=== PATIENT | female | born 1935 | race Caucasian/White ===

== ENCOUNTER 2016-10-03 00:28 | Emergency (ER) | payer MEDICARE, BC ==
[~2016-10-03] VITALS: Ht 160 cm; Wt 55.8 kg
[~2016-10-03 00:28] MED LIST: AMIO200T2 PO; AMLO5TAB2 PO; ATOR20TA58 PO; LEVO75TA5 PO; SENN-6 PO
[2016-10-03 01:17] LABS: BASO # 0.1 x10^3/uL (0.0-0.2); BASO % 1 % (0-3); EOS % 0 % (0-3); HEMATOCRIT 38.3 % (36.0-47.0); HEMOGLOBIN 13.2 g/dL (12.0-15.5); LYMPH # 2.5 x10^3/uL (1.0-4.8); LYMPH % 19 % (24-48); MEAN CORPUSCULAR HEMOGLOBIN 32 pg (25-35); MEAN CORPUSCULAR HGB CONC 35 g/dL (31-37); MEAN CORPUSCULAR VOLUME 93 fL (79-100); MONO % 6 % (0-9); NEUT % 75 % (31-73); PLATELET COUNT 229 x10^3/uL (140-400); RED CELL DISTRIBUTION WIDTH 13.7 % (11.5-14.5); WHITE BLOOD COUNT 13.1 x10^3/uL (4.0-11.0)
[2016-10-03] MEDS ORDERED: IV NORMAL SALINE 500ML BAG 500 ML IV ONE (01:30)
[2016-10-03] MEDS ORDERED: ONDANSETRON PF 4 MG/2 ML VIAL. IV ONE (01:30)
[2016-10-03 02:06] LABS: CALCIUM 9.1 mg/dL (8.5-10.1); CREATININE 1.9 mg/dL (0.6-1.0); GFR 25.3; POTASSIUM 3.5 mmol/L (3.5-5.1)
[2016-10-03 02:11] LABS: ALBUMIN 3.4 g/dL (3.4-5.0); ALBUMIN/GLOBULIN RATIO 1.1 (1.0-1.7); TOTAL BILIRUBIN 1.2 mg/dL (0.2-1.0); TOTAL PROTEIN 6.6 g/dL (6.4-8.2)
[2016-10-03 02:31] LABS: BILIRUBIN,URINE NEGATIVE (NEG); GLUCOSE,URINE NEGATIVE (NEG); NITRITE,URINE NEGATIVE (NEG); PH,URINE 7.5; PROTEIN,URINE NEGATIVE (NEG-TRACE)
[2016-10-03 02:45] VITALS: BP 123/75
[2016-10-03 02:51] LABS: BACTERIA,URINE MODERATE /HPF (0-FEW); RBC,URINE 0 /HPF (0-2); SQUAMOUS EPITHELIAL CELL,UR MOD /LPF
[2016-10-03] MEDS ORDERED: ONDA4TAB10 SL (03:12)
[2016-10-03] MEDS ORDERED: SULF1TAB23 PO (03:12)
--- NOTE | 2016-10-03 03:12 | PHYS DOC ---
Past Medical History Past Medical History: Heart Disease, Hypertension Past Surgical History: Appendectomy, Cholecystectomy, Coronary Bypass Surgery Alcohol Use: None Drug Use: None Adult General Chief Complaint Chief Complaint: NAUSEA/VOMITING/DIARRHA HPI HPI Patient is a 81 year old female who presents with nausea. The patient reports onset of nausea about 1 hour prior to arrival, associated with "dry heaves" & 1 episode of vomiting upon arrival here. She denies fevers/chills, hematemesis, abdominal pain, diarrhea, constipation, hematochezia/melena, dysuria/hematuria. She denies recent travel or antibiotics. She has no known exposures to sick contacts. She has history of appendectomy, cholecystectomy, CABG. Review of Systems Review of Systems Constitutional: Denies fever or chills HENT: Denies nasal congestion or sore throat Respiratory: Denies cough or shortness of breath Cardiovascular: Denies chest pain or edema GI: Reports abdominal pain, nausea, vomiting, denies bloody stools or diarrhea : Denies dysuria or hematuria Musculoskeletal: Denies back pain or joint pain Integument: Denies rash or skin lesions Neurologic: Denies headache, focal weakness or sensory changes Current Medications Current Medications Current Medications Medications (Trade) Dose Ordered Sig/Nelli Start Time Stop Time Status Last Admin Dose Admin Ondansetron HCl (Zofran) 4 mg 1X ONCE 10/03/16 01:30 10/03/16 01:31 DC 10/03/16 01:23 4 MG Sodium Chloride 500 ml @ 500 mls/hr 1X ONCE 10/03/16 01:30 10/03/16 02:29 DC 10/03/16 01:23 500 MLS/HR Allergies Allergies Allergies Coded Allergies Type Severity Reaction Last Updated Verified No Known Drug Allergies 05/25/13 No Physical Exam Physical Exam Constitutional: Well developed, well nourished, no acute distress, non-toxic appearance. HENT: Normocephalic, atraumatic, bilateral external ears normal, oropharynx moist, nose normal. Eyes:conjunctiva normal, no discharge. Neck: supple, no stridor. Cardiovascular: RRR, no murmurs, no edema. Lungs & Thorax: LCTAB, no wheezing, no respiratory distress. Abdomen: normal bowel sounds, soft, nontender, no rebound/guarding, no masses or pulsatile masses, nondistended. Skin: Warm, dry, no erythema, no rash. Back: No CVA tenderness. Extremities: No tenderness, no edema. Neurologic: Alert and oriented X 3, no focal deficits noted. Psychologic: Affect normal, judgement normal, mood normal. Current Patient Data Vital Signs Vital Signs Date Time Temp Pulse Resp B/P (MAP) Pulse Ox O2 Delivery O2 Flow Rate FiO2 10/03/16 03:00 54 54 96 Room Air 10/03/16 02:45 123/75 (91) 10/03/16 00:46 98.1 98.1 Lab Values Laboratory Tests Test 10/03/16 00:58 10/03/16 01:40 10/03/16 02:13 White Blood Count 13.1 x10^3/uL (4.0-11.0) H Red Blood Count 4.10 x10^6/uL (3.50-5.40) Hemoglobin 13.2 g/dL (12.0-15.5) Hematocrit 38.3 % (36.0-47.0) Mean Corpuscular Volume 93 fL (79-100) Mean Corpuscular Hemoglobin 32 pg (25-35) Mean Corpuscular Hemoglobin Concent 35 g/dL (31-37) Red Cell Distribution Width 13.7 % (11.5-14.5) Platelet Count 229 x10^3/uL (140-400) Neutrophils (%) (Auto) 75 % (31-73) H Lymphocytes (%) (Auto) 19 % (24-48) L Monocytes (%) (Auto) 6 % (0-9) Eosinophils (%) (Auto) 0 % (0-3) Basophils (%) (Auto) 1 % (0-3) Neutrophils # (Auto) 9.7 x10^3uL (1.8-7.7) H Lymphocytes # (Auto) 2.5 x10^3/uL (1.0-4.8) Monocytes # (Auto) 0.7 x10^3/uL (0.0-1.1) Eosinophils # (Auto) 0.1 x10^3/uL (0.0-0.7) Basophils # (Auto) 0.1 x10^3/uL (0.0-0.2) Sodium Level 142 mmol/L (136-145) Potassium Level 3.5 mmol/L (3.5-5.1) Chloride Level 106 mmol/L (98-107) Carbon Dioxide Level 28 mmol/L (21-32) Anion Gap 8 (6-14) Blood Urea Nitrogen 32 mg/dL (7-20) H Creatinine 1.9 mg/dL (0.6-1.0) H Estimated GFR (Cockcroft-Gault) 25.3 BUN/Creatinine Ratio 17 (6-20) Glucose Level 101 mg/dL (70-99) H Calcium Level 9.1 mg/dL (8.5-10.1) Total Bilirubin 1.2 mg/dL (0.2-1.0) H Aspartate Amino Transferase (AST) 21 U/L (15-37) Alanine Aminotransferase (ALT) 18 U/L (14-59) Alkaline Phosphatase 38 U/L (46-116) L Troponin I Quantitative < 0.017 ng/mL (0.000-0.055) Total Protein 6.6 g/dL (6.4-8.2) Albumin 3.4 g/dL (3.4-5.0) Albumin/Globulin Ratio 1.1 (1.0-1.7) Lipase 205 U/L (73-393) Urine Collection Type Unknown Urine Color Yellow Urine Clarity Cloudy Urine pH 7.5 Urine Specific [place] 1.020 Urine Protein Negative mg/dL (NEG-TRACE) Urine Glucose (UA) Negative mg/dL (NEG) Urine Ketones (Stick) Negative mg/dL (NEG) Urine Blood Negative (NEG) Urine Nitrite Negative (NEG) Urine Bilirubin Negative (NEG) Urine Urobilinogen Dipstick 1.0 mg/dL (0.2 mg/dL) Urine Leukocyte Esterase Moderate (NEG) Urine RBC 0 /HPF (0-2) Urine WBC 11-20 /HPF (0-4) Urine Squamous Epithelial Cells Mod /LPF Urine Amorphous Sediment Present /HPF Urine Bacteria Moderate /HPF (0-FEW) Laboratory Tests 10/03/16 00:58 Laboratory Tests 10/03/16 01:40 EKG EKG interpreted by me: NSR rate 53, no acute ST/T wave changes, QTc prolonged 474 ms, no ectopy.[] Radiology/Procedures Radiology/Procedures [] Course & Med Decision Making Course & Med Decision Making Pertinent Labs and Imaging studies reviewed. (See chart for details) Patient is well appearing with stable vitals, here after 1 episode of vomiting. She has no abdominal tenderness or peritoneal signs on exam. Gave zofran & IV fluids, labs as above. She has UTI & Cr is 1.9 but no other recent labs for comparison. She felt well & requested discharge home. Gave prescription for bactrim, encourage PO hydration. Follow up with PCP in 2-3 days. Come back for high fever, severe abdominal pain or flank pain, uncontrolled vomiting, any otherwise worsening condition. Discharged home in stable & improved condition. [] Dragon Disclaimer Dragon Disclaimer This electronic medical record was generated, in whole or in part, using a voice recognition dictation system. Departure Departure Impression: Primary Impression: Nausea & vomiting Additional Impression: Urinary tract infection Disposition: 01 HOME, SELF-CARE Condition: STABLE Referrals: NO PCP (PCP) Patient Instructions: Nausea and Vomiting, [id number], Urinary Tract Infection, [id number] Additional Instructions: You seen in the emergency department today for vomiting. Tests showed urinary tract infection and mild kidney impairment. Please the prescribed antibiotic, drink fluids to stay hydrated. Use Zofran as needed for nausea. Follow-up with primary care physician in 2-3 days. Return to the emergency department for high fever, severe abdominal pain or flank pain, uncontrolled vomiting, any otherwise worsening condition. Scripts Ondansetron (ZOFRAN ODT) 4 Mg Tab.rapdis 1 TAB SL Q8HRS Y for NAUSEA, #10 TAB Prov: ALEX JONES MD 10/03/16 Sulfamethoxazole/Trimethoprim (BACTRIM 400-80 MG TABLET) 1 Each Tablet 1 TAB PO BID, #10 TAB Prov: ALEX JONES MD 10/03/16 Problem Qualifiers ALEX JONES MD October 03, 2016 03:12
--- NOTE | 2016-10-03 06:27 | EKG ---
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
== END 2016-10-03 03:21 | disposition home or self-care (01) ==
LOC: ER 00:28
DX: N39.0 Urinary tract infection, site not specified (principal); R11.2 Nausea with vomiting, unspecified; I11.9 Hypertensive heart disease without heart failure; Z90.49 Acquired absence of other specified parts of digestive tract; Z95.1 Presence of aortocoronary bypass graft
CPT/HCPCS: 36415; 80053; 81001; 83690; 84484; 85027; 87086; 93005; 96361; 96374; 99285; J2405; J7040

== ENCOUNTER 2016-10-30 22:21 | Emergency (ER) | payer MEDICARE, BC ==
[~2016-10-30 22:21] MED LIST changes: +ONDA4TAB10 SL; +SULF1TAB23 PO
== END 2016-10-30 22:56 | disposition left against medical advice (07) ==
LOC: ER 22:21
DX: R10.9 Unspecified abdominal pain (principal); R51 Headache; Z53.21 Procedure and treatment not carried out due to patient leaving prior to being seen by health care provider

== ENCOUNTER 2016-12-20 19:10 | Emergency (ER) | payer MEDICARE, BC ==
[~2016-12-20] VITALS: Ht 160 cm; Wt 55.8 kg
[2016-12-20] MEDS ORDERED: MORPHINE SULFATE 2 MG/ML DISP.SYRIN. IV/SQ PRN (19:45)
[2016-12-20] MEDS ORDERED: ONDANSETRON PF 4 MG/2 ML VIAL. IV ONE (19:45)
[2016-12-20 20:13] LABS: BILIRUBIN,URINE SMALL (NEG); GLUCOSE,URINE NEGATIVE (NEG); NITRITE,URINE NEGATIVE (NEG); PROTEIN,URINE NEGATIVE (NEG-TRACE)
[2016-12-20 20:23] LABS: BACTERIA,URINE MANY /HPF (0-FEW); RBC,URINE 0 /HPF (0-2); SQUAMOUS EPITHELIAL CELL,UR MOD /LPF
[2016-12-20 20:37] LABS: BASO % 1 % (0-3); EOS % 1 % (0-3); HEMATOCRIT 37.5 % (36.0-47.0); HEMOGLOBIN 12.5 g/dL (12.0-15.5); LYMPH # 1.1 x10^3/uL (1.0-4.8); LYMPH % 18 % (24-48); MEAN CORPUSCULAR HEMOGLOBIN 32 pg (25-35); MEAN CORPUSCULAR HGB CONC 33 g/dL (31-37); MEAN CORPUSCULAR VOLUME 95 fL (79-100); MONO % 8 % (0-9); NEUT % 73 % (31-73); PLATELET COUNT 201 x10^3/uL (140-400); RED BLOOD COUNT 3.93 x10^6/uL (3.50-5.40)
[2016-12-20 20:54] LABS: CALCIUM 9.2 mg/dL (8.5-10.1); CREATININE 1.9 mg/dL (0.6-1.0); GFR 25.3
[2016-12-20 20:58] LABS: ALBUMIN 4.2 g/dL (3.4-5.0); ALBUMIN/GLOBULIN RATIO 1.2 (1.0-1.7); TOTAL BILIRUBIN 1.3 mg/dL (0.2-1.0); TOTAL PROTEIN 7.7 g/dL (6.4-8.2)
--- NOTE | 2016-12-20 21:39 | RAD ---
CT Abdomen and Pelvis without contrast History: Lower abdominal pain for one month Technique: Noncontrast CT imaging was performed of the abdomen and pelvis. Multiplanar images are reviewed. Exposure: One or more of the following individualized dose reduction techniques were utilized for this examination: 1. Automated exposure control 2. Adjustment of the mA and/or kV according to patient size 3. Use of iterative reconstruction technique. Comparison: May 09, 2008 Findings: There is mild linear atelectasis lung bases.Accurate evaluation of abdominal visceral organs is limited without intravenous contrast. There is no obvious abnormality of the spleen, liver, or pancreas. There is no adrenal nodularity. Gallbladder is again not visualized. There is no hydronephrosis of either kidney. There are apparently some punctate left renal calculi. There is a larger hypodense lesion of the superior right kidney up to 3.1 cm, density measurements suggestive of a cyst at 12 Hounsfield units. There is diffuse atherosclerotic calcification of the abdominal aorta, extent to the iliac arteries bilaterally, also near the renal artery origins. There is likely mild narrowing of the origin of the superior mesenteric artery by calcified plaque. Accurate evaluation of bowel is limited without oral contrast. There is fairly prominent distention of the stomach. There is retained stool variably throughout the colon greatest of the ascending through descending colon. There reportedly has been appendectomy. There is no significant free air, free fluid, bowel dilatation. There is multilevel lumbar facet degenerative change. There is spondylosis greatest L3-4 and L2-3. There is at least mild spinal stenosis at L4-5 and L3-4. There is at least mild neural foramina compromise bilaterally at L2-3. There is again fat in the left inguinal canal, no bowel. Impression: 1. There is variable retained stool in the colon greatest of ascending through descending colon. 2. There is right renal cyst larger than previous exam. 3. There is fairly prominent distention of the stomach. 4. There is again fat in the left inguinal canal, no bowel. Electronically signed by: Sal Burger MD (12/20/2016 9:36 PM) [facility]
--- NOTE | 2016-12-20 22:50 | PHYS DOC ---
Past Medical History Past Medical History: Heart Disease, Hypertension Past Surgical History: Appendectomy, Cholecystectomy, Coronary Bypass Surgery Alcohol Use: None Drug Use: None Adult General Chief Complaint Chief Complaint: VAGINAL PROBLEM HPI HPI Patient is a 81 year old female who presents with abdominal pain. The patient reports three-day history of intermittent frequent lower abdominal spasms like contractions. She states these episodes are very painful and brief. She also reports increased bilateral lower extremity edema. She denies fevers or chills, nausea or vomiting, diarrhea or constipation, dysuria or hematuria, vaginal bleeding or discharge. She has history of previous UTI. History of appendectomy , cholecystectomy, CABG. Review of Systems Review of Systems Constitutional: Denies fever or chills Eyes: Denies change in visual acuity HENT: Denies nasal congestion or sore throat Respiratory: Denies cough or shortness of breath Cardiovascular: Denies chest pain or edema GI: Reports abdominal pain, denies nausea, vomiting, bloody stools or diarrhea : Denies dysuria or hematuria Musculoskeletal: Denies back pain or joint pain Integument: Denies rash or skin lesions Neurologic: Denies headache, focal weakness or sensory changes Current Medications Current Medications Current Medications Medications (Trade) Dose Ordered Sig/Nelli Start Time Stop Time Status Last Admin Dose Admin Morphine Sulfate 2 mg PRN Q15MIN PRN 12/20/16 19:45 12/21/16 01:43 DC 12/20/16 20:39 2 MG Ondansetron HCl (Zofran) 4 mg 1X ONCE 12/20/16 19:45 12/20/16 19:46 DC 12/20/16 20:38 4 MG Allergies Allergies Allergies Coded Allergies Type Severity Reaction Last Updated Verified No Known Drug Allergies 05/25/13 No Physical Exam Physical Exam Constitutional: Well developed, well nourished, no acute distress, non-toxic appearance. HENT: Normocephalic, atraumatic, bilateral external ears normal, oropharynx moist, nose normal. Eyes: PERRLA, EOMI, conjunctiva normal, no discharge. Neck: supple, no stridor. Cardiovascular: RRR, no murmurs Lungs & Thorax: LCTAB, no wheezing, no respiratory distress. Abdomen: soft, nontender, nondistended. No masses or pulsatile masses, no rebound or guarding. Intermittent spasms of the overlying abdominal musculature Skin: Warm, dry, no erythema, no rash. Back: No CVA tenderness. Extremities: No tenderness, 2+ nonpitting edema to bilateral lower extremities without calf tenderness Neurologic: Alert and oriented X 3, no focal deficits noted. Psychologic: Affect normal, judgement normal, mood normal. Current Patient Data Vital Signs Vital Signs Date Time Temp Pulse Resp B/P (MAP) Pulse Ox O2 Delivery O2 Flow Rate FiO2 12/20/16 23:30 55 16 118/67 (84) 95 Room Air 12/20/16 19:22 98.6 98.6 Lab Values Laboratory Tests Test 12/20/16 20:06 12/20/16 20:25 Urine Collection Type Unknown Urine Color Yellow Urine Clarity Cloudy Urine pH 6.0 Urine Specific [place] 1.020 Urine Protein Negative mg/dL (NEG-TRACE) Urine Glucose (UA) Negative mg/dL (NEG) Urine Ketones (Stick) Negative mg/dL (NEG) Urine Blood Negative (NEG) Urine Nitrite Negative (NEG) Urine Bilirubin Small (NEG) Urine Urobilinogen Dipstick 1.0 mg/dL (0.2 mg/dL) Urine Leukocyte Esterase Moderate (NEG) Urine RBC 0 /HPF (0-2) Urine WBC 1-4 /HPF (0-4) Urine Squamous Epithelial Cells Mod /LPF Urine Bacteria Many /HPF (0-FEW) Urine Hyaline Casts Moderate /HPF Urine Mucus Mod /LPF White Blood Count 6.0 x10^3/uL (4.0-11.0) Red Blood Count 3.93 x10^6/uL (3.50-5.40) Hemoglobin 12.5 g/dL (12.0-15.5) Hematocrit 37.5 % (36.0-47.0) Mean Corpuscular Volume 95 fL (79-100) Mean Corpuscular Hemoglobin 32 pg (25-35) Mean Corpuscular Hemoglobin Concent 33 g/dL (31-37) Red Cell Distribution Width 14.0 % (11.5-14.5) Platelet Count 201 x10^3/uL (140-400) Neutrophils (%) (Auto) 73 % (31-73) Lymphocytes (%) (Auto) 18 % (24-48) L Monocytes (%) (Auto) 8 % (0-9) Eosinophils (%) (Auto) 1 % (0-3) Basophils (%) (Auto) 1 % (0-3) Neutrophils # (Auto) 4.4 x10^3uL (1.8-7.7) Lymphocytes # (Auto) 1.1 x10^3/uL (1.0-4.8) Monocytes # (Auto) 0.5 x10^3/uL (0.0-1.1) Eosinophils # (Auto) 0.1 x10^3/uL (0.0-0.7) Basophils # (Auto) 0.0 x10^3/uL (0.0-0.2) Sodium Level 143 mmol/L (136-145) Potassium Level 4.0 mmol/L (3.5-5.1) Chloride Level 107 mmol/L (98-107) Carbon Dioxide Level 27 mmol/L (21-32) Anion Gap 9 (6-14) Blood Urea Nitrogen 30 mg/dL (7-20) H Creatinine 1.9 mg/dL (0.6-1.0) H Estimated GFR (Cockcroft-Gault) 25.3 BUN/Creatinine Ratio 16 (6-20) Glucose Level 98 mg/dL (70-99) Calcium Level 9.2 mg/dL (8.5-10.1) Total Bilirubin 1.3 mg/dL (0.2-1.0) H Aspartate Amino Transferase (AST) 30 U/L (15-37) Alanine Aminotransferase (ALT) 25 U/L (14-59) Alkaline Phosphatase 43 U/L (46-116) L Troponin I Quantitative < 0.017 ng/mL (0.000-0.055) UH-Zef-P-Type Natriuretic Peptide 923 pg/mL (0-449) H Total Protein 7.7 g/dL (6.4-8.2) Albumin 4.2 g/dL (3.4-5.0) Albumin/Globulin Ratio 1.2 (1.0-1.7) Lipase 419 U/L (73-393) H Laboratory Tests 12/20/16 20:25 Laboratory Tests 12/20/16 20:25 EKG EKG Interpreted by me: Normal sinus rhythm rate 58, no acute ST or T wave changes, normal intervals, no ectopy. Radiology/Procedures Radiology/Procedures PROCEDURE: CT ABDOMEN PELVIS WO CONTRAST CT Abdomen and Pelvis without contrast History: Lower abdominal pain for one month Technique: Noncontrast CT imaging was performed of the abdomen and pelvis. Multiplanar images are reviewed. Exposure: One or more of the following individualized dose reduction techniques were utilized for this examination: 1. Automated exposure control 2. Adjustment of the mA and/or kV according to patient size 3. Use of iterative reconstruction technique. Comparison: May 09, 2008 Findings: There is mild linear atelectasis lung bases.Accurate evaluation of abdominal visceral organs is limited without intravenous contrast. There is no obvious abnormality of the spleen, liver, or pancreas. There is no adrenal nodularity. Gallbladder is again not visualized. There is no hydronephrosis of either kidney. There are apparently some punctate left renal calculi. There is a larger hypodense lesion of the superior right kidney up to 3.1 cm, density measurements suggestive of a cyst at 12 Hounsfield units. There is diffuse atherosclerotic calcification of the abdominal aorta, extent to the iliac arteries bilaterally, also near the renal artery origins. There is likely mild narrowing of the origin of the superior mesenteric artery by calcified plaque. Accurate evaluation of bowel is limited without oral contrast. There is fairly prominent distention of the stomach. There is retained stool variably throughout the colon greatest of the ascending through descending colon. There reportedly has been appendectomy. There is no significant free air, free fluid, bowel dilatation. There is multilevel lumbar facet degenerative change. There is spondylosis greatest L3-4 and L2-3. There is at least mild spinal stenosis at L4-5 and L3-4. There is at least mild neural foramina compromise bilaterally at L2-3. There is again fat in the left inguinal canal, no bowel. Impression: 1. There is variable retained stool in the colon greatest of ascending through descending colon. 2. There is right renal cyst larger than previous exam. 3. There is fairly prominent distention of the stomach. 4. There is again fat in the left inguinal canal, no bowel. Electronically signed by: Cinthia Moreno MD (12/20/2016 9:36 PM) [facility] DICTATED and SIGNED BY: CINTHIA MORENO MD DATE: 12/20/162128 PROCEDURE: PELVIS COMPLETE Pelvic and transvaginal ultrasound History: 81 yr old with low abdominal vaginal spasms Comparison: None. Findings: Multiple transabdominal sonographic images of the pelvis are submitted. Pelvic structures are poorly visualized. Transvaginal ultrasound: Multiple transvaginal sonographic images of the pelvis are submitted. Uterus measured 3.1 x 5 x 4 cm. Endometrium measures 0.46 cm. Neither ovary was visualized. There is a trace quantity of fluid in the endometrial cavity. Impression: 1. Neither ovary could be visualized. Uterus is small. Electronically signed by: Cinthia Moreno MD (12/20/2016 10:57 PM) [facility] DICTATED and SIGNED BY: CINTHIA MORENO MD DATE: 12/20/16 3540[] Course & Med Decision Making Course & Med Decision Making Pertinent Labs and Imaging studies reviewed. (See chart for details) The patient presents with abdominal pain. Symptoms are unsual but the patient is obviously distressed because of discomfort. Gave IV fluids & pain medication. Obtained labs, UA, CT. CT shows several abnormalities though none obviously explaining her symptoms. Pain not focal over inguinal region, not having epigastric pain. UA suggests possible mild UTI but not impressive as explanation of the symptoms she is experiencing. I recommended admission due to ongoing pain without obvious explanation. She refused admission, states she understands etiology not identified, prefers to go sleep in her own bed. Obtained pelvic US which is very limited but again no obvious source of symptoms. The spasms seemed to become less frequent. I again offered admission which she declined. Gave cipro for UTI, recommend rest, hydration, follow up with PCP in 2 days. Come back for high fever, severe pain, uncontrolled vomiting, any otherwise worsening condition. [] Dragon Disclaimer Dragon Disclaimer This electronic medical record was generated, in whole or in part, using a voice recognition dictation system. Departure Departure Impression: Primary Impression: Abdominal pain Additional Impression: Urinary tract infection Disposition: HOME, SELF-CARE Condition: STABLE Referrals: UNKNOWN PCP NAME (PCP) Patient Instructions: Abdominal Pain, [id number], Urinary Tract Infection, [id number] Additional Instructions: You were seen in the emergency department today for abdominal pain. You have a mild urinary tract infection. Otherwise we did not find a serious cause of your symptoms. We offered admission to the hospital for further evaluation of your complaint. You preferred to go home. Please follow-up with your primary care doctor in 2 days. Return to the emergency department for high fever, severe pain , uncontrolled vomiting, any otherwise worsening condition. Scripts Ciprofloxacin Hcl (CIPRO) 250 Mg Tablet 1 TAB PO BID, #6 TAB Prov: ALEX JONES MD 12/20/16 Problem Qualifiers ALEX JONES MD Dec 20, 2016 22:50
--- NOTE | 2016-12-20 23:01 | RAD ---
Pelvic and transvaginal ultrasound History: 81 yr old with low abdominal vaginal spasms Comparison: None. Findings: Multiple transabdominal sonographic images of the pelvis are submitted. Pelvic structures are poorly visualized. Transvaginal ultrasound: Multiple transvaginal sonographic images of the pelvis are submitted. Uterus measured 3.1 x 5 x 4 cm. Endometrium measures 0.46 cm. Neither ovary was visualized. There is a trace quantity of fluid in the endometrial cavity. Impression: 1. Neither ovary could be visualized. Uterus is small. Electronically signed by: Sal Burger MD (12/20/2016 10:57 PM) [facility]
[2016-12-20] MEDS ORDERED: CIPR250T30 PO (23:26)
[2016-12-20 23:30] VITALS: BP 118/67
--- NOTE | 2016-12-21 08:51 | EKG ---
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
== END 2016-12-20 23:34 | disposition home or self-care (01) ==
LOC: ER 19:10
DX: N39.0 Urinary tract infection, site not specified (principal); I11.9 Hypertensive heart disease without heart failure; Z90.49 Acquired absence of other specified parts of digestive tract; Z95.1 Presence of aortocoronary bypass graft
CPT/HCPCS: 36415; 74176; 76856; 80053; 81001; 83690; 83880; 84484; 85027; 87086; 93005; 96374; 96375; 99285; J2270; J2405

== ENCOUNTER 2016-12-23 17:56 | Emergency (ER) | payer MEDICARE, BC ==
[~2016-12-23 17:56] MED LIST changes: +CIPR250T30 PO
[2016-12-23 20:45] VITALS: BP 159/68
--- NOTE | 2016-12-25 12:57 | EKG ---
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
--- NOTE | 2016-12-27 06:08 | ED.ADGEN ---
Past Medical History Past Medical History: Heart Disease, Hypertension Past Surgical History: Appendectomy, Cholecystectomy, Coronary Bypass Surgery Alcohol Use: None Drug Use: None Adult General Chief Complaint Chief Complaint: OTHER COMPLAINTS HPI HPI Patient is a 81 year old female presents with dizziness/accidental fall. Patient states she was sitting in a a rocking chair and she leaned back tipping the chair backwards and fell forward striking the back of her head. Patient denies loss of consciousness or feeling dazed. She denies headache, neck pain or any pain or injury complaint at this time. Patient is not on anticoagulation or antiplatelet therapy. Patient states she simply lost her balance. Patient states brought the patient to the emergency department for evaluation due to concern of possible injury. Patient states she feels fine and declines any imaging or lab analysis and states she prefers to go home. Review of Systems Review of Systems ROS as per HPI. Allergies Allergies Allergies Coded Allergies Type Severity Reaction Last Updated Verified No Known Drug Allergies 05/25/13 No Physical Exam Physical Exam Constitutional: Well developed, well nourished, no acute distress. HENT: Normocephalic, atraumatic, bilateral external ears normal, oropharynx moist, no oral exudates, nose normal. Eyes: PERRLA, EOMI, conjunctiva normal. Neck: Normal range of motion, no tenderness, supple, no stridor. Cardiovascular:Heart rate regular rhythm, no murmur. Lungs & Thorax: Bilateral breath sounds clear to auscultation. Abdomen: Bowel sounds normal, soft, no tenderness. Skin: Warm, dry. Back: No tenderness. Extremities: No tenderness. Neurologic: Alert and oriented X 3, normal motor function, normal sensory function, no focal deficits noted. Psychologic: Affect normal, judgement normal, mood normal. Current Patient Data Vital Signs Vital Signs Date Time Temp Pulse Resp B/P (MAP) Pulse Ox O2 Delivery O2 Flow Rate FiO2 12/23/16 20:45 56 159/68 (98) 98 Room Air 12/23/16 18:42 97.7 18 97.7 EKG EKG [] Radiology/Procedures Radiology/Procedures [] Course & Med Decision Making Course & Med Decision Making [Patient with request for medical screening exam. Patient's exam is unremarkable. Recommend discharge home with closed head injury instructions. Return precautions reviewed. Return to the ED if new or worsening symptoms.] Dragon Disclaimer Dragon Disclaimer This electronic medical record was generated, in whole or in part, using a voice recognition dictation system. JASSI FREITAS DO Dec 27, 2016 06:08
== END 2016-12-23 20:48 | disposition home or self-care (01) ==
LOC: ER 17:56
DX: R42 Dizziness and giddiness (principal); I11.9 Hypertensive heart disease without heart failure; Z95.1 Presence of aortocoronary bypass graft; Z90.49 Acquired absence of other specified parts of digestive tract; W07.XXXA Fall from chair, initial encounter; Y93.89 Activity, other specified; Y92.89 Other specified places as the place of occurrence of the external cause; Y99.8 Other external cause status
CPT/HCPCS: 93005; 99284

== ENCOUNTER 2016-12-27 20:40 | Emergency (ER) | payer MEDICARE, BC ==
[~2016-12-27] VITALS: Ht 162.6 cm; Wt 54.4 kg
[2016-12-27 21:30] VITALS: BP 145/65
--- NOTE | 2016-12-27 21:35 | PHYS DOC ---
Past Medical History Past Medical History: No Pertinent History, Heart Disease, Hypertension Past Surgical History: Appendectomy, Cholecystectomy, Coronary Bypass Surgery Alcohol Use: None Drug Use: None Adult General Chief Complaint Chief Complaint: PAIN ON URINATION HPI HPI Patient is a 81 year old female brought to the ED by 2 family members with the complaint that the patient says it hurts when she urinates. The patient states "I know one thing, I am not staying in the hospital". History seems to be that for at least one to 2 weeks, the patient has intermittently complained of pain across her lower abdomen that seems like bothers her worse when she urinates. Although it's hard to get the history because the patient does have dementia, it does not sound like the patient actually has dysuria, she does not have burning with urination, she has not had urinary frequency or urinary incontinence. She has complained intermittently of pain across her suprapubic area. Family member with the patient states "she is recently had to UTIs and she just finished a round of antibiotics". They believe about 2 or 3 weeks ago she was seen at [facility] emergency department with a diagnosis of UTI, they don't know what antibiotic she was given. They believe that was in late October or early November. She wasn't sick, just had the complaint that it hurt when she. Then she was seen here December 20. I reviewed that record. She had CT scan of the abdomen and pelvis as well as ultrasound of the pelvis, all of which were unrevealing and negative for acute cause of pain. Urinalysis was equivocally positive she was prescribed 3 days of Cipro which they believe she did take. However, the urine culture was negative for UTI. Family members do not know who the patient's primary care provider is, although the patient brings a bag of medications and it appears that she is seen at the geriatric clinic at . Review of Systems Review of Systems Constitutional: Denies fever or chills [] Respiratory: Denies cough or shortness of breath [] GI: Denies nausea, vomiting, bloody stools or diarrhea [] : As in history of present illness Current Medications Current Medications Current Medications Medications (Trade) Dose Ordered Sig/[place] Start Time Stop Time Status Last Admin Dose Admin Magnesium Citrate (Citroma) 296 ml 1X ONCE 12/27/16 22:00 12/27/16 22:01 Allergies Allergies Allergies Coded Allergies Type Severity Reaction Last Updated Verified No Known Drug Allergies 05/25/13 No Physical Exam Physical Exam Constitutional: Well developed, well nourished, no acute distress, non-toxic appearance. Alert, appears to be mentating at her baseline, talkative, no acute distress. HENT: Normocephalic, atraumatic, bilateral external ears normal, nose normal. [ ] Eyes: conjunctiva normal, no discharge. [] Neck: Normal range of motion, no stridor. [] Cardiovascular:Heart rate regular rhythm, no murmur [] Lungs & Thorax: Bilateral breath sounds clear to auscultation [] Abdomen: Bowel sounds normal to busy but normal sounding, soft, mildly distended , increased tympany across the lower abdomen, no tenderness, no masses, no pulsatile masses. [] Skin: Warm, dry, no erythema, no rash. [] Extremities: No tenderness, no cyanosis, no clubbing, ROM intact, no edema. [] Neurologic: Alert and oriented X 3, normal motor function, normal sensory function, no focal deficits noted. [] Current Patient Data Vital Signs Vital Signs Date Time Temp Pulse Resp B/P (MAP) Pulse Ox O2 Delivery O2 Flow Rate FiO2 12/27/16 20:57 98.0 62 16 161/80 (107) 99 Room Air 98.0 EKG EKG [] Radiology/Procedures Radiology/Procedures [] Course & Med Decision Making Course & Med Decision Making Pertinent Labs and Imaging studies reviewed. (See chart for details) 81-year-old female presents with family members with the complaint of lower abdominal/suprapubic pain off and on for possibly several weeks. I reviewed the records here at [facility]. She was seen on December 20 with the same complaint and had a thorough evaluation including CT scan, ultrasound, which were unrevealing, as well as urinalysis that was equivocally positive but was contaminated, with urine culture being negative for UTI. She did complete a 3 day course of Cipro which did not change her symptoms. I evaluation, the thin patient is a bit distended and has increased tympany across the lower abdomen. I wonder if she might be constipated. Although the patient denies it, this might be consistent with complaints off and on and physical findings today. Patient looks very nontoxic. I am quite hesitant to repeat a workup that was just done a week ago today. I recommended a trial of laxative to see if her symptoms will resolve. I discussed in length with the patient and her to family members my thinking and recommendation for follow-up with her primary care doctor. See instructions for plan. [] Dragon Disclaimer Dragon Disclaimer This electronic medical record was generated, in whole or in part, using a voice recognition dictation system. Departure Departure Impression: Primary Impression: Abdominal pain Additional Impression: Constipation Disposition: 01 HOME, SELF-CARE Condition: STABLE Referrals: UNKNOWN PCP NAME (PCP) Patient Instructions: Constipation, Adult, [id number] Additional Instructions: As we discussed, CT scan, ultrasound, and lab tests done on December 20 did not show any cause of lower abdominal pain. Urinalysis possibly showed infection but when the results of the urine culture came back, it was negative for urinary tract infection. Today, I do not believe symptoms are from a urinary tract infection because she just finished antibiotics and urine culture was negative on December 20. I recommend that we will try treating the symptoms with a dose of laxative. Go home and drink one half bottle of magnesium citrate tonight. Tomorrow morning, after breakfast, if you have not had good "results", drink the second half of the bottle of magnesium citrate. If one half bottle is enough, you can save the second half for a later use. Make a follow-up appointment with your primary care doctor at . Take this paper with you. If you are still having symptoms, talk to your doctor in clinic. Problem Qualifiers FRANCO SANTO MD Dec 27, 2016 21:35
[2016-12-27] MEDS ORDERED: MAGNESIUM CITRATE 296 ML SOLUTION. PO ONE (22:00)
== END 2016-12-27 21:43 | disposition home or self-care (01) ==
LOC: ER 20:40
DX: R10.30 Lower abdominal pain, unspecified (principal); K59.00 Constipation, unspecified; I11.9 Hypertensive heart disease without heart failure; F03.90 Unspecified dementia, unspecified severity, without behavioral disturbance, psychotic disturbance, mood disturbance, and anxiety; Z90.49 Acquired absence of other specified parts of digestive tract; Z95.1 Presence of aortocoronary bypass graft
CPT/HCPCS: 99284

== ENCOUNTER 2017-02-08 18:39 | Emergency (ER) | payer MEDICARE, BC ==
[~2017-02-08] VITALS: Ht 152.4 cm; Wt 51.3 kg
[2017-02-08] MEDS ORDERED: IV NORMAL SALINE 1000ML BAG 1,000 ML IV SCH (19:07)
[2017-02-08 19:15] LABS: BASO # 0.1 x10^3/uL (0.0-0.2); BASO % 1 % (0-3); EOS % 1 % (0-3); HEMATOCRIT 36.8 % (36.0-47.0); HEMOGLOBIN 12.3 g/dL (12.0-15.5); LYMPH # 1.5 x10^3/uL (1.0-4.8); LYMPH % 21 % (24-48); MEAN CORPUSCULAR HEMOGLOBIN 32 pg (25-35); MEAN CORPUSCULAR HGB CONC 33 g/dL (31-37); MEAN CORPUSCULAR VOLUME 97 fL (79-100); MONO % 7 % (0-9); NEUT % 71 % (31-73); PLATELET COUNT 197 x10^3/uL (140-400); RED CELL DISTRIBUTION WIDTH 13.9 % (11.5-14.5); WHITE BLOOD COUNT 7.1 x10^3/uL (4.0-11.0)
[2017-02-08 19:27] LABS: BILIRUBIN,URINE SMALL (NEG); GLUCOSE,URINE NEGATIVE (NEG); NITRITE,URINE NEGATIVE (NEG); PH,URINE 6.5; PROTEIN,URINE NEGATIVE (NEG-TRACE)
[2017-02-08 19:32] LABS: BACTERIA,URINE 0 /HPF (0-FEW); RBC,URINE 0 /HPF (0-2); SQUAMOUS EPITHELIAL CELL,UR FEW /LPF; WBC,URINE OCC /HPF (0-4)
[2017-02-08 19:32] LABS: CALCIUM 9.7 mg/dL (8.5-10.1); CREATININE 1.9 mg/dL (0.6-1.0); GFR 25.3; POTASSIUM 3.8 mmol/L (3.5-5.1)
--- NOTE | 2017-02-08 19:33 | PHYS DOC ---
Past Medical History Past Medical History: Heart Disease, Hypertension Past Surgical History: Appendectomy, Cholecystectomy, Coronary Bypass Surgery Alcohol Use: None Drug Use: None Adult General Chief Complaint Chief Complaint: ABDOMINAL PAIN HPI HPI 81-year-old female with a past medical history of Alzheimer's hypothyroidism hypertension and high cholesterol prior appendectomy cholecystectomy and coronary artery bypass graft now presents to the emergency department for evaluation after an episode of abdominal pain. Patient lives at home with her family. Earlier today she had some intermittent abdominal pain which is now resolved. Patient has no focal tenderness by her description. No vomiting or diarrhea. No fevers chills sweats or shaking chills. Pain is not reproducible with movement and she has no flank pain. Normal bowel and bladder habits. Patient has no history of chronic abdominal problems or chronic abdominal pain. She is very clear that she had no chest pain or shortness of breath at any time Review of Systems Review of Systems Constitutional: Denies fever or chills [] Eyes: Denies change in visual acuity, redness, or eye pain [] HENT: Denies nasal congestion or sore throat [] Respiratory: Denies cough or shortness of breath [] Cardiovascular: No additional information not addressed in HPI [] GI: Denies abdominal pain, nausea, vomiting, bloody stools or diarrhea [] : Denies dysuria or hematuria [] Musculoskeletal: Denies back pain or joint pain [] Integument: Denies rash or skin lesions [] Neurologic: Denies headache, focal weakness or sensory changes [] Endocrine: Denies polyuria or polydipsia [] Current Medications Current Medications Current Medications Medications (Trade) Dose Ordered Sig/[place] Start Time Stop Time Status Last Admin Dose Admin Sodium Chloride 1,000 ml @ 999 mls/hr Q1H1M 02/08/17 19:07 02/08/17 20:07 DC 02/08/17 19:19 999 MLS/HR Allergies Allergies Allergies Coded Allergies Type Severity Reaction Last Updated Verified No Known Drug Allergies 05/25/13 No Physical Exam Physical Exam Chronically weak appearing elderly female mildly confused consistent with her baseline of dementia per granddaughter. Alert communicative cooperative and appropriate. Patient with a nonfocal extended neurologic exam including cranial nerves. Mildly dry mucous membranes clear lungs regular rate and rhythm no tachycardia no focal abdominal tenderness guarding or rebound no mass or megaly nondistended no skin changes normal extremities. Constitutional: Well developed, well nourished, no acute distress, non-toxic appearance. [] HENT: Normocephalic, atraumatic, bilateral external ears normal, oropharynx moist, no oral exudates, nose normal. [] Eyes: PERRLA, EOMI, conjunctiva normal, no discharge. [] Neck: Normal range of motion, no tenderness, supple, no stridor. [] Cardiovascular:Heart rate regular rhythm, no murmur [] Lungs & Thorax: Bilateral breath sounds clear to auscultation [] Abdomen: Bowel sounds normal, soft, no tenderness, no masses, no pulsatile masses. [] Skin: Warm, dry, no erythema, no rash. [] Back: No tenderness, no CVA tenderness. [] Extremities: No tenderness, no cyanosis, no clubbing, ROM intact, no edema. [] Neurologic: Alert and oriented baseline mental status w/ dementia per granddaughter normal motor function, normal sensory function, no focal deficits noted. [] Psychologic: Affect normal, judgement normal, mood normal. [] Current Patient Data Vital Signs Vital Signs Date Time Temp Pulse Resp B/P (MAP) Pulse Ox O2 Delivery O2 Flow Rate FiO2 02/08/17 21:30 50 15 140/68 (92) 96 02/08/17 19:30 Room Air 02/08/17 18:45 98.2 98.2 Lab Values Laboratory Tests Test 02/08/17 18:55 02/08/17 19:17 White Blood Count 7.1 x10^3/uL (4.0-11.0) Red Blood Count 3.80 x10^6/uL (3.50-5.40) Hemoglobin 12.3 g/dL (12.0-15.5) Hematocrit 36.8 % (36.0-47.0) Mean Corpuscular Volume 97 fL (79-100) Mean Corpuscular Hemoglobin 32 pg (25-35) Mean Corpuscular Hemoglobin Concent 33 g/dL (31-37) Red Cell Distribution Width 13.9 % (11.5-14.5) Platelet Count 197 x10^3/uL (140-400) Neutrophils (%) (Auto) 71 % (31-73) Lymphocytes (%) (Auto) 21 % (24-48) L Monocytes (%) (Auto) 7 % (0-9) Eosinophils (%) (Auto) 1 % (0-3) Basophils (%) (Auto) 1 % (0-3) Neutrophils # (Auto) 5.0 x10^3uL (1.8-7.7) Lymphocytes # (Auto) 1.5 x10^3/uL (1.0-4.8) Monocytes # (Auto) 0.5 x10^3/uL (0.0-1.1) Eosinophils # (Auto) 0.1 x10^3/uL (0.0-0.7) Basophils # (Auto) 0.1 x10^3/uL (0.0-0.2) Sodium Level 142 mmol/L (136-145) Potassium Level 3.8 mmol/L (3.5-5.1) Chloride Level 106 mmol/L (98-107) Carbon Dioxide Level 29 mmol/L (21-32) Anion Gap 7 (6-14) Blood Urea Nitrogen 30 mg/dL (7-20) H Creatinine 1.9 mg/dL (0.6-1.0) H Estimated GFR (Cockcroft-Gault) 25.3 BUN/Creatinine Ratio 16 (6-20) Glucose Level 94 mg/dL (70-99) Calcium Level 9.7 mg/dL (8.5-10.1) Total Bilirubin 1.2 mg/dL (0.2-1.0) H Aspartate Amino Transferase (AST) 18 U/L (15-37) Alanine Aminotransferase (ALT) 18 U/L (14-59) Alkaline Phosphatase 50 U/L (46-116) Total Protein 7.5 g/dL (6.4-8.2) Albumin 3.9 g/dL (3.4-5.0) Albumin/Globulin Ratio 1.1 (1.0-1.7) Lipase 352 U/L (73-393) Thyroid Stimulating Hormone (TSH) 17.829 uIU/mL (0.358-3.74) H Urine Collection Type Unknown Urine Color Yellow Urine Clarity Clear Urine pH 6.5 Urine Specific [place] 1.020 Urine Protein Negative mg/dL (NEG-TRACE) Urine Glucose (UA) Negative mg/dL (NEG) Urine Ketones (Stick) Negative mg/dL (NEG) Urine Blood Negative (NEG) Urine Nitrite Negative (NEG) Urine Bilirubin Small (NEG) Urine Urobilinogen Dipstick 1.0 mg/dL (0.2 mg/dL) Urine Leukocyte Esterase Negative (NEG) Urine RBC 0 /HPF (0-2) Urine WBC Occ /HPF (0-4) Urine Squamous Epithelial Cells Few /LPF Urine Bacteria 0 /HPF (0-FEW) Urine Mucus Slight /LPF Laboratory Tests 02/08/17 18:55 Laboratory Tests 02/08/17 18:55 EKG EKG Normal sinus rhythm at 57 normal axis no STEMI are provided by me[] Radiology/Procedures Radiology/Procedures CT abdomen and pelvis pending[] Course & Med Decision Making Course & Med Decision Making Pertinent Labs and Imaging studies reviewed. (See chart for details) Elderly female no chronic abdominal problems now status post transient episode of abdominal pain currently pain-free and well-appearing. No chest pain or shortness of breath. Vital signs unremarkable. Abdominal exam is benign. Full workup pending. IV fluids initiated will follow clinically and correlate with laboratory and imaging results. Patient well-appearing on reevaluation. Asymptomatic. CT shows constipation and otherwise no acute intracranial findings. TSH 17.8 significantly elevated consistent with thyroid supplementation noncompliance. By mouth dose of Synthroid given ED patient aware of critical importance of compliance with her medication regimen. BUN/creatinine 30 and 1.9. Multiple prior value is 1.9 so today's creatinine is unremarkable. Benign exam on reevaluation. Vital signs unremarkable. No further workup or treatment indicated. Patient and family agree with outpatient follow-up and strict return precautions given [] Dragon Disclaimer Dragon Disclaimer This electronic medical record was generated, in whole or in part, using a voice recognition dictation system. Departure Departure Impression: Primary Impression: Abdominal pain Additional Impressions: Mild dehydration Constipation Noncompliance with medication regimen Chronic renal insufficiency Disposition: HOME, SELF-CARE Condition: GOOD Referrals: UNKNOWN PCP NAME (PCP) Patient Instructions: Abdominal Pain, Constipation, Adult Additional Instructions: Full workup today reveals constipation and this is likely the source of your intermittent abdominal pain earlier tonight. U have chronic renal insufficiency and your creatinine is 1.9 unchanged from previous values. Your TSH was elevated at 17.8 which suggests that you've not been taking her Synthroid supplementation. We've given new a supplemental dose of thyroid hormone here tonight but is critically important that you resume your thyroid supplementation regimen as previously prescribed. Follow-up with your doctor tomorrow. You been given a copy of her CT results to discuss with your primary care doctor or the incidental finding of a lipoma in the antrum of your stomach Scripts Docusate Sodium (COLACE) 100 Mg Capsule 1 CAP PO BID, #30 CAP Prov: TORSTEN HALE MD 02/08/17 Problem Qualifiers TORSTEN HALE MD Feb 08, 2017 19:33
[2017-02-08 19:37] LABS: ALBUMIN 3.9 g/dL (3.4-5.0); ALBUMIN/GLOBULIN RATIO 1.1 (1.0-1.7); TOTAL BILIRUBIN 1.2 mg/dL (0.2-1.0); TOTAL PROTEIN 7.5 g/dL (6.4-8.2)
--- NOTE | 2017-02-08 20:33 | RAD ---
CT study of the abdomen and pelvis without contrast Clinical indications: Worsening abdominal pain. Elevated creatinine level. TECHNIQUE: Noncontrast helical CT scanning of the abdomen and pelvis was performed. Without contrast, the sensitivity to detect organ pathology or GI tract pathology is decreased. PQRS compliance Statement One or more of the following individualized dose reduction techniques were utilized for this study: 1. Automated exposure control 2. Adjustment of the mA and/or kV according to patient size 3. Use of iterative reconstruction technique COMPARISON: December 20, 2016. FINDINGS: The liver and spleen and pancreas are homogeneous in appearance on this noncontrast study. The gallbladder is not apparent and therefore may be surgically absent. No extrahepatic biliary ductal dilatation is seen. No adrenal mass is evident. Right renal cyst is seen. No hydronephrosis or hydroureter or urinary tract stone is evident. Urinary bladder wall is smooth. No uterine mass is seen. No dominant ovarian cyst or mass is evident. Moderate fecal retention is seen within the rectum. Mild/moderate fecal retention is seen throughout the rest of the colon. No obstructive bowel pattern is seen. A lipoma of the antrum of the stomach is seen measuring 16 mm in size. There is no mesenteric edema present. No free air or free fluid is seen. There are no CT findings of appendicitis. The terminal ileum is unremarkable. No focal aneurysmal dilatation of the abdominal aorta is seen. No enlarged abdominal or pelvic lymphadenopathy is seen. No osteolytic process is seen. Bibasilar scarring is again seen. IMPRESSION: No acute abnormality of the abdomen or pelvis. Moderate fecal retention within the rectum. Mild/moderate fecal retention throughout the rest of the colon. 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 This is unchanged in size. Electronically signed by: Oleg Falk MD (02/08/2017 8:30 PM) [facility]
[2017-02-08] MEDS ORDERED: LEVOTHYROXINE 100 MCG TABLET PO STA (21:43)
[2017-02-08] MEDS ORDERED: DOCU-109 PO (21:51)
[2017-02-08 22:00] VITALS: BP 149/73
--- NOTE | 2017-02-09 12:03 | EKG ---
[facility] [address] [place] [address] Test Date: 2017-02-08 Test Time: 18:47:44 Pat Name: NAYE SAINI Department: Room: Gender: F [employer]: : 1935 Requested By: TORSTEN HALE Order Number: [id number] Reading MD: Queta Feldman Measurements Intervals [place] Rate: 57 P: -24 [place]: 200 QRS: 49 QRSD: 108 T: 66 QT: 436 QTc: 427 Interpretive Statements SINUS RHYTHM NON SPECIFIC ST T WAVE CHANGES Electronically Signed On 02-13-2017 10:51:46 CDT by Queta Feldman
== END 2017-02-08 22:00 | disposition home or self-care (01) ==
LOC: ER 18:39
DX: K59.00 Constipation, unspecified (principal); E86.0 Dehydration; Z91.14 Patient's other noncompliance with medication regimen; I13.10 Hypertensive heart and chronic kidney disease without heart failure, with stage 1 through stage 4 chronic kidney disease, or unspecified chronic kidney disease; N18.9 Chronic kidney disease, unspecified; E78.00 Pure hypercholesterolemia, unspecified; Z95.1 Presence of aortocoronary bypass graft; Z90.49 Acquired absence of other specified parts of digestive tract
CPT/HCPCS: 36415; 74176; 80053; 81001; 83690; 84443; 85025; 93005; 96360; 96361; 99285; J7030; P9612

== ENCOUNTER 2017-04-20 18:20 | Emergency (ER) | payer MEDICARE, BC ==
[~2017-04-20] VITALS: Ht 160 cm; Wt 51.3 kg
[~2017-04-20 18:20] MED LIST changes: +DOCU-109 PO
[2017-04-20 18:49] LABS: BASO % 1 % (0-3); EOS % 1 % (0-3); HEMATOCRIT 38.9 % (36.0-47.0); LYMPH # 1.3 x10^3/uL (1.0-4.8); LYMPH % 20 % (24-48); MEAN CORPUSCULAR HEMOGLOBIN 32 pg (25-35); MEAN CORPUSCULAR HGB CONC 34 g/dL (31-37); MEAN CORPUSCULAR VOLUME 96 fL (79-100); MONO % 7 % (0-9); NEUT % 72 % (31-73); PLATELET COUNT 215 x10^3/uL (140-400); RED BLOOD COUNT 4.04 x10^6/uL (3.50-5.40); RED CELL DISTRIBUTION WIDTH 13.8 % (11.5-14.5); WHITE BLOOD COUNT 6.5 x10^3/uL (4.0-11.0)
[2017-04-20 19:01] LABS: CALCIUM 9.7 mg/dL (8.5-10.1); CREATININE 1.7 mg/dL (0.6-1.0); GFR 28.7; POTASSIUM 4.1 mmol/L (3.5-5.1)
[2017-04-20 19:08] LABS: ALBUMIN 4.2 g/dL (3.4-5.0); DIRECT BILIRUBIN 0.2 mg/dL (0.0-0.2); TOTAL BILIRUBIN 1.2 mg/dL (0.2-1.0); TOTAL PROTEIN 7.6 g/dL (6.4-8.2)
--- NOTE | 2017-04-20 19:18 | PHYS DOC ---
Past Medical History Past Medical History: Heart Disease, Hypertension Past Surgical History: Appendectomy, Cholecystectomy, Coronary Bypass Surgery Alcohol Use: None Drug Use: None Adult General Chief Complaint Chief Complaint: ABDOMINAL PAIN HPI HPI 82 YO F with middle abd pain. She reports that currently her abd pain has subsided. (Nursing note states pain is an eight/ten. Pt denies having any pain in front of myself and the nurse. Pt appears comfortable and doesn't appear to be in pain either.) Her pain started 1 wk ago. It is a sharp shooting pain that is not radiating. She has a hx of an appy and cholecystectomy. She reports no nausea or vomiting. She denies diarrhea. She reports having intermittent constipation. Family reports that theyve noticed her mildly unsteady on her gait. She has not had any falls. ROS neg for f/c/n/v. Denies chest pain or shortness of breath. All other review of systems is negative unless otherwise noted in history of present illness. ED course: 82-year-old female presenting to the emergency department with epigastric abdominal pain. Upon arrival the patient's pain has subsided. She is afebrile with a normal heart rate. On examination she has a soft nondistended nontender abdomen. Surgical scar from cholecystectomy and appendectomy in place. Normal bowel sounds. The remainder the exam is unremarkable. Blood work and CT the abdomen pelvis obtained. nl cbc. blood work neg. Later in the ED course, the pts pain returned and was mild. Oral pain medication given. Patient was ambulated in the emergency department and was able to walk without any difficulty. Patient has a steady gait. Urinalysis shows possible urinary tract infection. I prescribed the patient oral Macrobid for treatment. Patient and family are comfortable plan. The patient was then discharged home in stable condition to follow up with their primary care physician over the next 2-3 days. They were to return if their symptoms worsened or if they were concerned for any reason. [id number] discharge instructions and return precautions were given. Patient's questions were answered to their satisfaction. Patient is comfortable plan. Review of Systems Review of Systems SEE ABOVE. Current Medications Current Medications Current Medications Medications (Trade) Dose Ordered Sig/Nelli Start Time Stop Time Status Last Admin Dose Admin Acetaminophen/ Hydrocodone Bitart (Lortab 5/325) 1 tab 1X ONCE 04/20/17 20:00 04/20/17 20:01 DC 04/20/17 20:00 1 TAB Allergies Allergies Allergies Coded Allergies Type Severity Reaction Last Updated Verified No Known Drug Allergies 05/25/13 No Physical Exam Physical Exam SEE ABOVE Constitutional: Well developed, well nourished, no acute distress, non-toxic appearance. [] HENT: Normocephalic, atraumatic, bilateral external ears normal, oropharynx moist, no oral exudates, nose normal. [] Eyes: PERRLA, EOMI, conjunctiva normal, no discharge. [] Neck: Normal range of motion, no tenderness, supple, no stridor. [] Cardiovascular:Heart rate regular rhythm, no murmur [] Lungs & Thorax: Bilateral breath sounds clear to auscultation [] Abdomen: Bowel sounds normal, soft, no tenderness, no masses, no pulsatile masses. [] Skin: Warm, dry, no erythema, no rash. [] Back: No tenderness, no CVA tenderness. [] Extremities: No tenderness, no cyanosis, no clubbing, ROM intact, no edema. [] Neurologic: Alert and oriented X 3, normal motor function, normal sensory function, no focal deficits noted. [] Psychologic: Affect normal, judgement normal, mood normal. [] Current Patient Data Vital Signs Vital Signs Date Time Temp Pulse Resp B/P (MAP) Pulse Ox O2 Delivery O2 Flow Rate FiO2 04/20/17 20:52 Room Air 04/20/17 18:30 98.1 56 20 139/67 (91) 98 98.1 Lab Values Laboratory Tests Test 04/20/17 18:41 04/20/17 19:30 04/20/17 20:45 White Blood Count 6.5 x10^3/uL (4.0-11.0) Red Blood Count 4.04 x10^6/uL (3.50-5.40) Hemoglobin 13.0 g/dL (12.0-15.5) Hematocrit 38.9 % (36.0-47.0) Mean Corpuscular Volume 96 fL (79-100) Mean Corpuscular Hemoglobin 32 pg (25-35) Mean Corpuscular Hemoglobin Concent 34 g/dL (31-37) Red Cell Distribution Width 13.8 % (11.5-14.5) Platelet Count 215 x10^3/uL (140-400) Neutrophils (%) (Auto) 72 % (31-73) Lymphocytes (%) (Auto) 20 % (24-48) L Monocytes (%) (Auto) 7 % (0-9) Eosinophils (%) (Auto) 1 % (0-3) Basophils (%) (Auto) 1 % (0-3) Neutrophils # (Auto) 4.7 x10^3uL (1.8-7.7) Lymphocytes # (Auto) 1.3 x10^3/uL (1.0-4.8) Monocytes # (Auto) 0.5 x10^3/uL (0.0-1.1) Eosinophils # (Auto) 0.0 x10^3/uL (0.0-0.7) Basophils # (Auto) 0.0 x10^3/uL (0.0-0.2) Sodium Level 141 mmol/L (136-145) Potassium Level 4.1 mmol/L (3.5-5.1) Chloride Level 106 mmol/L (98-107) Carbon Dioxide Level 29 mmol/L (21-32) Anion Gap 6 (6-14) Blood Urea Nitrogen 36 mg/dL (7-20) H Creatinine 1.7 mg/dL (0.6-1.0) H Estimated GFR (Cockcroft-Gault) 28.7 Glucose Level 113 mg/dL (70-99) H Calcium Level 9.7 mg/dL (8.5-10.1) Total Bilirubin 1.2 mg/dL (0.2-1.0) H Direct Bilirubin 0.2 mg/dL (0.0-0.2) Aspartate Amino Transferase (AST) 17 U/L (15-37) Alanine Aminotransferase (ALT) 19 U/L (14-59) Alkaline Phosphatase 45 U/L (46-116) L Troponin I Quantitative < 0.017 ng/mL (0.000-0.055) Total Protein 7.6 g/dL (6.4-8.2) Albumin 4.2 g/dL (3.4-5.0) Lipase 267 U/L (73-393) Lactic Acid Level 0.9 mmol/L (0.4-2.0) Urine Collection Type Unknown Urine Color Yellow Urine Clarity Cloudy Urine pH 8.0 Urine Specific [place] 1.015 Urine Protein Negative mg/dL (NEG-TRACE) Urine Glucose (UA) Negative mg/dL (NEG) Urine Ketones (Stick) Negative mg/dL (NEG) Urine Blood Negative (NEG) Urine Nitrite Negative (NEG) Urine Bilirubin Negative (NEG) Urine Urobilinogen Dipstick 1.0 mg/dL (0.2 mg/dL) Urine Leukocyte Esterase Moderate (NEG) Urine RBC 1-2 /HPF (0-2) Urine WBC 5-10 /HPF (0-4) Urine Squamous Epithelial Cells Mod /LPF Urine Amorphous Sediment Present /HPF Urine Bacteria 0 /HPF (0-FEW) Urine Mucus Slight /LPF Laboratory Tests 04/20/17 18:41 Laboratory Tests 04/20/17 18:41 EKG EKG [] Radiology/Procedures Radiology/Procedures [] Course & Med Decision Making Course & Med Decision Making Pertinent Labs and Imaging studies reviewed. (See chart for details) [] Dragon Disclaimer Dragon Disclaimer This electronic medical record was generated, in whole or in part, using a voice recognition dictation system. Departure Departure Impression: Primary Impression: Abdominal pain Additional Impression: Urinary tract infection Disposition: 01 HOME, SELF-CARE Condition: STABLE Referrals: UNKNOWN PCP NAME (PCP) TORSTEN GOODSON MD Patient Instructions: Abdominal Pain, Urinary Tract Infection Additional Instructions: Thank you for allowing us to participate in your care today. Followup with your primary care physician in 3 days if your symptoms do not improve. Call your Primary Doctor tomorrow and inform them of your visit today. If you do not have a primary care provider you can ask for a list of our primary care providers. Return to the emergency department you have any new or concerning findings. This should be evaluated by the primary care physician and any necessary consulting services for continued management within a few days after discharge. Return to emergency room if you have any new or concerning symptoms including but not limited to fever, chills, nausea, vomiting, intractable pain, any new rashes, chest pain, shortness of air, uncontrolled bleeding, difficulty breathing, and/or vision loss. Scripts Nitrofurantoin Monohyd/M-Cryst (MACROBID 100 MG CAPSULE) 100 Mg Capsule 1 CAP PO BID, #10 CAP Prov: KATHLEEN NASH MD 04/20/17 Problem Qualifiers KATHLEEN NASH MD Apr 20, 2017 19:18
--- NOTE | 2017-04-20 19:28 | RAD ---
Abdominal and Pelvis CT, Without Contrast: History: Constipation and abdominal pain. Comparison: February 08, 2017. Procedure: Axial images are obtained of the abdomen and pelvis, without IV or oral contrast. CT Abdomen without Contrast: Findings: Evaluation of solid organs is limited without contrast. Evaluation of stomach and bowel is limited without oral contrast. Liver: Normal. Spleen: Normal. Pancreas: Normal. Adrenal Glands: Normal. Kidneys: Mild prominence of the renal pelvis is likely extra renal pelvises. There is a simple cyst of the right kidney. There is no free air or free fluid. There is no lymphadenopathy. There is calcification the nevarez of the abdominal aorta without aneurysm. Impression: Please see CT Pelvis without Contrast. End Impression. CT Pelvis without Contrast: Findings: The urinary bladder appears normal. There is no free fluid. There is no lymphadenopathy. There is no pericolonic inflammation identified. The appendix is not well identified. There is a fat-containing inguinal canal hernia on the left. Impression: No acute findings. End impression PQRS Compliance Statement: One or more of the following individualized dose reduction techniques were utilized for this examination: 1. Automated exposure control 2. Adjustment of the mA and/or kV according to patient size 3. Use of iterative reconstruction technique Electronically signed by: Dewayne Ellison III, MD (04/20/2017 7:25 PM) [facility]
[2017-04-20] MEDS ORDERED: HYDROcodone/APAP 5/325MG 1 TAB TABLET PO ONE (20:00)
[2017-04-20 20:51] LABS: BILIRUBIN,URINE NEGATIVE (NEG); GLUCOSE,URINE NEGATIVE (NEG); NITRITE,URINE NEGATIVE (NEG); PROTEIN,URINE NEGATIVE (NEG-TRACE)
[2017-04-20 21:00] VITALS: BP 143/86
[2017-04-20 21:00] LABS: BACTERIA,URINE 0 /HPF (0-FEW); SQUAMOUS EPITHELIAL CELL,UR MOD /LPF
[2017-04-20] MEDS ORDERED: NITR100C62 PO (21:07)
--- NOTE | 2017-04-21 06:18 | EKG ---
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
== END 2017-04-20 21:27 | disposition home or self-care (01) ==
LOC: ER 18:20
DX: R10.13 Epigastric pain (principal); N39.0 Urinary tract infection, site not specified; I10 Essential (primary) hypertension; Z90.49 Acquired absence of other specified parts of digestive tract; Z95.1 Presence of aortocoronary bypass graft
CPT/HCPCS: 36415; 74176; 80048; 80076; 81001; 83605; 83690; 84484; 85025; 87086; 93005; 99285-25

== ENCOUNTER 2017-06-09 19:53 | Emergency (ER) | payer MEDICARE, BC ==
[2017-06-09 20:41] LABS: BILIRUBIN,URINE NEGATIVE (NEG); CLARITY,URINE CLEAR; COLOR,URINE YELLOW; GLUCOSE,URINE NEGATIVE (NEG); NITRITE,URINE NEGATIVE (NEG); PROTEIN,URINE NEGATIVE (NEG-TRACE)
[2017-06-09 20:58] LABS: BACTERIA,URINE 0 /HPF (0-FEW); RBC,URINE 0 /HPF (0-2); SQUAMOUS EPITHELIAL CELL,UR FEW /LPF; WBC,URINE 0 /HPF (0-4)
[2017-06-09 21:06] LABS: ADD MAN DIFF? NO
[2017-06-09 21:08] LABS: BASO # 0.1 x10^3/uL (0.0-0.2); BASO % 1 % (0-3); EOS # 0.1 x10^3/uL (0.0-0.7); EOS % 1 % (0-3); HEMATOCRIT 31.4 % (36.0-47.0); HEMOGLOBIN 10.6 g/dL (12.0-15.5); LYMPH # 1.5 x10^3/uL (1.0-4.8); LYMPH % 26 % (24-48); MEAN CORPUSCULAR HEMOGLOBIN 33 pg (25-35); MEAN CORPUSCULAR HGB CONC 34 g/dL (31-37); MEAN CORPUSCULAR VOLUME 99 fL (79-100); MONO # 0.6 x10^3/uL (0.0-1.1); MONO % 10 % (0-9); NEUT # 3.7 x10^3uL (1.8-7.7); NEUT % 63 % (31-73); PLATELET COUNT 157 x10^3/uL (140-400); RED BLOOD COUNT 3.19 x10^6/uL (3.50-5.40); RED CELL DISTRIBUTION WIDTH 13.7 % (11.5-14.5); WHITE BLOOD COUNT 5.9 x10^3/uL (4.0-11.0)
[2017-06-09 21:19] LABS: ANION GAP 10 (6-14); BLOOD UREA NITROGEN 36 mg/dL (7-20); BUN/CREATININE RATIO 21 (6-20); CALCIUM 8.5 mg/dL (8.5-10.1); CARBON DIOXIDE 24 mmol/L (21-32); CHLORIDE 110 mmol/L (98-107); CREATININE 1.7 mg/dL (0.6-1.0); GFR 28.7; GLUCOSE 96 mg/dL (70-99); SODIUM 144 mmol/L (136-145)
[2017-06-09 21:25] LABS: ALBUMIN 3.4 g/dL (3.4-5.0); ALBUMIN/GLOBULIN RATIO 1.1 (1.0-1.7); ALK PHOS 45 U/L (46-116); ALT (SGPT) 14 U/L (14-59); AST (SGOT) 17 U/L (15-37); LIPASE 328 U/L (73-393); TOTAL BILIRUBIN 0.8 mg/dL (0.2-1.0); TOTAL PROTEIN 6.4 g/dL (6.4-8.2)
[2017-06-09 21:33] LABS: CKMB INDEX 1.2 % (0-4); CKMB MASS 1.5 ng/mL (0.0-3.6); CREATINE KINASE 126 U/L (26-192)
== END 2017-06-09 21:54 | disposition home or self-care (01) ==
LOC: ER 19:53
DX: R10.9 Unspecified abdominal pain (principal); E78.00 Pure hypercholesterolemia, unspecified; F03.90 Unspecified dementia, unspecified severity, without behavioral disturbance, psychotic disturbance, mood disturbance, and anxiety; E78.5 Hyperlipidemia, unspecified; I25.10 Atherosclerotic heart disease of native coronary artery without angina pectoris; I11.9 Hypertensive heart disease without heart failure; Z90.49 Acquired absence of other specified parts of digestive tract; Z87.440 Personal history of urinary (tract) infections; Z95.1 Presence of aortocoronary bypass graft
CPT/HCPCS: 36415; 74022; 80053; 81001; 82553; 83690; 85025; 93005; 99285-25; P9612

== ENCOUNTER 2017-08-27 16:54 | Emergency (ER) | payer MEDICARE, BC ==
[2017-08-27 17:39] LABS: ADD MAN DIFF? NO; BASO % 1 % (0-3); EOS # 0.1 x10^3/uL (0.0-0.7); EOS % 2 % (0-3); HEMATOCRIT 41.4 % (36.0-47.0); HEMOGLOBIN 13.8 g/dL (12.0-15.5); LYMPH # 1.2 x10^3/uL (1.0-4.8); LYMPH % 27 % (24-48); MEAN CORPUSCULAR HEMOGLOBIN 32 pg (25-35); MEAN CORPUSCULAR HGB CONC 33 g/dL (31-37); MEAN CORPUSCULAR VOLUME 97 fL (79-100); MONO # 0.3 x10^3/uL (0.0-1.1); MONO % 7 % (0-9); NEUT # 2.8 x10^3uL (1.8-7.7); NEUT % 63 % (31-73); PLATELET COUNT 211 x10^3/uL (140-400); RED BLOOD COUNT 4.29 x10^6/uL (3.50-5.40); RED CELL DISTRIBUTION WIDTH 13.3 % (11.5-14.5); WHITE BLOOD COUNT 4.4 x10^3/uL (4.0-11.0)
[2017-08-27 17:47] LABS: BILIRUBIN,URINE NEGATIVE (NEG); COLOR,URINE YELLOW; GLUCOSE,URINE NEGATIVE (NEG); NITRITE,URINE NEGATIVE (NEG); PROTEIN,URINE NEGATIVE (NEG-TRACE)
[2017-08-27 17:56] LABS: TROPONIN BY ISTAT 0.02 ng/ml (<0.08)
[2017-08-27 18:01] LABS: BACTERIA,URINE 0 /HPF (0-FEW); CLARITY,URINE CLEAR; RBC,URINE RARE /HPF (0-2); SQUAMOUS EPITHELIAL CELL,UR FEW /LPF; WBC,URINE RARE /HPF (0-4)
[2017-08-27 18:20] LABS: ANION GAP 8 (6-14); BLOOD UREA NITROGEN 32 mg/dL (7-20); BUN/CREATININE RATIO 21 (6-20); CALCIUM 9.4 mg/dL (8.5-10.1); CARBON DIOXIDE 25 mmol/L (21-32); CHLORIDE 107 mmol/L (98-107); CREATININE 1.5 mg/dL (0.6-1.0); GFR 33.2; GLUCOSE 95 mg/dL (70-99); SODIUM 140 mmol/L (136-145)
[2017-08-27 18:26] LABS: ALBUMIN 3.3 g/dL (3.4-5.0); ALBUMIN/GLOBULIN RATIO 0.9 (1.0-1.7); ALK PHOS 48 U/L (46-116); ALT (SGPT) 19 U/L (14-59); AST (SGOT) 29 U/L (15-37); LIPASE 156 U/L (73-393); TOTAL BILIRUBIN 2.1 mg/dL (0.2-1.0); TOTAL PROTEIN 6.9 g/dL (6.4-8.2)
== END 2017-08-27 19:25 | disposition home or self-care (01) ==
LOC: ER 16:54
DX: R10.9 Unspecified abdominal pain (principal); E78.00 Pure hypercholesterolemia, unspecified; F03.90 Unspecified dementia, unspecified severity, without behavioral disturbance, psychotic disturbance, mood disturbance, and anxiety; I11.9 Hypertensive heart disease without heart failure; I25.10 Atherosclerotic heart disease of native coronary artery without angina pectoris; Z90.49 Acquired absence of other specified parts of digestive tract; Z95.5 Presence of coronary angioplasty implant and graft; Z87.440 Personal history of urinary (tract) infections
CPT/HCPCS: 36415; 51702; 74022; 80053; 81001; 83690; 84484; 85025; 93005; 99285-25

== ENCOUNTER 2017-11-11 21:39 | Emergency (ER) | payer MEDICARE, BC ==
[2017-11-11 23:33] LABS: ANION GAP 6 (6-14); BLOOD UREA NITROGEN 24 mg/dL (7-20); BUN/CREATININE RATIO 15 (6-20); CALCIUM 9.2 mg/dL (8.5-10.1); CARBON DIOXIDE 28 mmol/L (21-32); CHLORIDE 108 mmol/L (98-107); CREATININE 1.6 mg/dL (0.6-1.0); GFR 30.8; GLUCOSE 91 mg/dL (70-99); POTASSIUM 3.8 mmol/L (3.5-5.1); SODIUM 142 mmol/L (136-145)
[2017-11-11 23:34] LABS: ADD MAN DIFF? NO
[2017-11-11 23:37] LABS: BASO % 1 % (0-3); EOS % 1 % (0-3); HEMATOCRIT 36.6 % (36.0-47.0); HEMOGLOBIN 12.7 g/dL (12.0-15.5); LYMPH # 1.4 x10^3/uL (1.0-4.8); LYMPH % 26 % (24-48); MEAN CORPUSCULAR HEMOGLOBIN 34 pg (25-35); MEAN CORPUSCULAR HGB CONC 35 g/dL (31-37); MEAN CORPUSCULAR VOLUME 97 fL (79-100); MONO # 0.4 x10^3/uL (0.0-1.1); MONO % 7 % (0-9); NEUT # 3.6 x10^3uL (1.8-7.7); NEUT % 66 % (31-73); PLATELET COUNT 157 x10^3/uL (140-400); RED BLOOD COUNT 3.77 x10^6/uL (3.50-5.40); RED CELL DISTRIBUTION WIDTH 13.7 % (11.5-14.5); WHITE BLOOD COUNT 5.4 x10^3/uL (4.0-11.0)
[2017-11-11 23:39] LABS: ALBUMIN 3.7 g/dL (3.4-5.0); ALBUMIN/GLOBULIN RATIO 1.1 (1.0-1.7); ALK PHOS 51 U/L (46-116); ALT (SGPT) 22 U/L (14-59); AST (SGOT) 19 U/L (15-37)
[2017-11-11 23:51] LABS: BILIRUBIN,URINE NEGATIVE (NEG); CLARITY,URINE CLEAR; COLOR,URINE YELLOW; GLUCOSE,URINE NEGATIVE (NEG); NITRITE,URINE NEGATIVE (NEG); PH,URINE 7.5; PROTEIN,URINE NEGATIVE (NEG-TRACE)
[2017-11-11 23:58] LABS: BACTERIA,URINE 0 /HPF (0-FEW); RBC,URINE 0 /HPF (0-2); SQUAMOUS EPITHELIAL CELL,UR OCC /LPF; WBC,URINE OCC /HPF (0-4)
[2017-11-12] MEDS ORDERED: IBUPROFEN 600 MG TABLET. PO (01:00)
[2017-11-12] MEDS ORDERED: TAMSULOSIN 0.4 MG CAP.ER.24H. PO (01:00)
== END 2017-11-12 00:49 | disposition home or self-care (01) ==
LOC: ER 11-12 00:49
DX: N20.0 Calculus of kidney (principal); F03.90 Unspecified dementia, unspecified severity, without behavioral disturbance, psychotic disturbance, mood disturbance, and anxiety; Z95.5 Presence of coronary angioplasty implant and graft; Z90.49 Acquired absence of other specified parts of digestive tract
CPT/HCPCS: 36415; 74176; 80053; 81001; 85025; 93005; 99285-25

== ENCOUNTER 2018-01-15 22:58 | Emergency (ER) | payer MEDICARE, BC ==
[2017-11-11 23:50] VITALS: BP 175/74
[~2018-01-15 22:58] MED LIST changes: -AMIO200T2 PO; +AMIO200T4 PO; +NITR100C62 PO; +POLY119P4 PO; -SENN-6 PO; +SENN-82 PO; +TAMS0.4C97 PO
--- NOTE | 2018-01-16 01:27 | PHYS DOC ---
Past Medical History Past Medical History: Constipation, Dementia Past Surgical History: Appendectomy, Cholecystectomy, Coronary Bypass Surgery Alcohol Use: None Drug Use: None Adult General HPI HPI Patient is a 82 year old female who presents with change in mental status. Patient is accompanied by her . The patient does live at home with her . She has known Alzheimer's disease. reports that earlier today, he noted that the patient was less responsive compared to baseline. There is not much additional history available from either the patient or her . The patient does open her eyes and responds to verbal stimuli but she immediately falls back asleep. No recent illnesses reported. The patient does deny chest pain, cough, fever, chills, or any pain currently. Review of Systems Review of Systems Constitutional: Denies fever or chills Eyes: Denies change in visual acuity HENT: Denies nasal congestion or sore throat Respiratory: Denies cough or shortness of breath Cardiovascular: No additional information GI: Denies abdominal pain, nausea : Denies dysuria or hematuria Musculoskeletal: Denies back pain Integument: Denies rash or skin lesions Neurologic: Denies headache, focal weakness Endocrine: Denies polyuria All other systems were reviewed and found to be within normal limits, except as documented in this note. Allergies Allergies Allergies Coded Allergies Type Severity Reaction Last Updated Verified No Known Drug Allergies 05/25/13 No Physical Exam Physical Exam Constitutional: chronically ill-appearing elderly female who is minimally responsive HENT: Normocephalic, atraumatic, bilateral external ears normal, oropharynx dry Eyes: PERRLA, EOMI Neck: Normal range of motion, no tenderness Cardiovascular:Heart rate regular rhythm, no murmur Lungs & Thorax: Bilateral breath sounds clear to auscultation Abdomen: Bowel sounds normal, soft, no tenderness Skin: Warm, dry, no erythema, no rash Extremities: No tenderness, no cyanosis, no clubbing, ROM intact, no edema Neurologic: Alert and oriented X 3, moves all extremities EKG EKG [] Radiology/Procedures Radiology/Procedures CT head was negative for acute findings. Course & Med Decision Making Course & Med Decision Making Pertinent Labs and Imaging studies reviewed. (See chart for details) Marjorie was evaluated in the emergency department for a depressed mental status. She was protecting her airway. She had a CT scan that was negative. She had a complete lab panel that did not reveal acute findings. Her lactate was not elevated. Her troponin was normal. Her white blood cell count was also normal. The patient was given a 500 mL bolus of normal saline at which point she became alert and oriented. She denied wanting further care. She was able to answer questions appropriately. The patient was recommended to stay. Her urinalysis had not yet been completed. The patient signed AGAINST MEDICAL ADVICE. At the time she signed, the patient was competent to do so. She was accompanied by her who is her primary caregiver and he also did not want to stay for additional evaluation since his was feeling better. They're discharged home with dehydration instructions. She is advised to follow-up with her primary care doctor or return to ER for any new or worsening symptoms. Dragon Disclaimer Dragon Disclaimer This electronic medical record was generated, in whole or in part, using a voice recognition dictation system. Departure Departure Impression: Primary Impression: Dehydration Disposition: 07 AGAINST MEDICAL ADVICE Condition: IMPROVED Patient Instructions: Dehydration, Adult, [id number] VERNELL MAN DO Jan 16, 2018 01:27
[2018-01-16 01:53] LABS: ALBUMIN 3.9 g/dL (3.4-5.0); CALCIUM 9.7 mg/dL (8.5-10.1); CREATININE 1.8 mg/dL (0.6-1.0); DIRECT BILIRUBIN 0.3 mg/dL (0.0-0.2); GFR 26.9; POTASSIUM 3.8 mmol/L (3.5-5.1); TOTAL BILIRUBIN 1.9 mg/dL (0.2-1.0)
[2018-01-16 01:56] LABS: PROTHROMBIN TIME PATIENT 14.3 SEC (11.7-14.0)
[2018-01-16 01:58] LABS: HEMATOCRIT 38.4 % (36.0-47.0); HEMOGLOBIN 12.9 g/dL (12.0-15.5); MEAN CORPUSCULAR HEMOGLOBIN 32 pg (25-35); MEAN CORPUSCULAR HGB CONC 34 g/dL (31-37); MEAN CORPUSCULAR VOLUME 96 fL (79-100); WHITE BLOOD COUNT 6.8 x10^3/uL (4.0-11.0)
[2018-01-16 01:59] LABS: BASO % 1 % (0-3); EOS % 1 % (0-3); LYMPH % 15 % (24-48); MONO # 0.4 x10^3/uL (0.0-1.1); MONO % 7 % (0-9); NEUT # 5.2 x10^3uL (1.8-7.7); NEUT % 77 % (31-73); PLATELET COUNT 188 x10^3/uL (140-400)
--- NOTE | 2018-01-16 03:10 | RAD ---
RS Compliance Statement: One or more of the following individualized dose reduction techniques were utilized for this examination: 1. Automated exposure control 2. Adjustment of the mA and/or kV according to patient size 3. Use of iterative reconstruction technique CT HEAD WITHOUT CONTRAST History: Dizziness Comparison: None. Technique: Axial images are obtained of the head from the skull base through the vertex without IV contrast. Findings: No mass-effect, midline shift, extra-axial fluid collection, hemorrhage, or obvious acute infarction is identified. Basilar cisterns are patent. The ventricles and sulci are prominent, consistent with age-related cerebral atrophy. There is periventricular white matter hypoattenuation. This is a nonspecific finding but is commonly due to chronic small vessel ischemic disease. 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 Bone windows demonstrate no acute calvarial abnormality. Mild mucosal thickening left maxillary sinus, no air-fluid level. Mastoid air cells are well aerated. IMPRESSION: 1. No acute intracranial abnormality. 2. Age-related cerebral atrophy and periventricular white matter changes of chronic small vessel ischemic disease. Electronically signed by: Lenny Adamson MD (01/16/2018 3:06 AM) [facility]
--- NOTE | 2018-01-16 08:03 | RAD ---
Portable chest, 01/16/2018: HISTORY: Dizziness Comparison is made to a study from 08/27/2017. There has been a previous median sternotomy. There is calcific plaquing and tortuosity of the thoracic aorta. The pulmonary vascularity is normal. Left basilar linear opacities are unchanged compatible scarring. No new pulmonary abnormality is seen. There is unchanged blunting of the left lateral costophrenic angle. No definite pleural fluid is evident. IMPRESSION: 1. Mild left basilar pleural/parenchymal scarring. 2. No acute cardiopulmonary abnormality is detected. Electronically signed by: Alton Montes De Oca MD (01/16/2018 8:00 AM) [facility]
== END 2018-01-16 01:30 | disposition left against medical advice (07) ==
LOC: ER 22:58
DX: E86.0 Dehydration (principal); R41.82 Altered mental status, unspecified; G30.9 Alzheimer's disease, unspecified; F02.80 Dementia in other diseases classified elsewhere, unspecified severity, without behavioral disturbance, psychotic disturbance, mood disturbance, and anxiety; Z95.5 Presence of coronary angioplasty implant and graft
CPT/HCPCS: 36415; 70450; 71045; 80048; 80076; 83605; 83880; 84484; 85025; 85610; 85730; 87040; 99285-25